=== PATIENT | female | born 1955 | race Caucasian/White ===

== ENCOUNTER → 2023-10-12 | Outpatient (CLI) | payer OTHER, SELFPAY ==
--- NOTE | 2023-10-12 16:16 | CT_ITS ---
STUDY: CT RIGHT HIP REASON FOR EXAM: Female, 67 years old. Unilateral primary osteoarthritis, right hip, surgical planning CONTRAST: None. TECHNIQUE: Transaxial imaging of the hip was performed with reformatted sagittal and coronal images. The protocol utilizes one or more of the following dose reduction techniques: automated exposure control, adjustment of mA and/or kV according to patient size,and/or use of iterative reconstruction technique. COMPARISON: FINDINGS: HIP Severe joint space narrowing with osteophyte formation, subchondral sclerosis, and subchondral cyst formation consistent with severe arthrosis. There is lateral osteoarthritic spurring of the acetabular rim with a cortical erosion of the weight bearing articular surface of the cetabulum. Normal femoral neck and intertrochanteric region. VISUALIZED OSSEOUS PELVIS Normal superior and inferior pubic rami. Normal pubic symphysis. Normal bilateral ischial tuberosity. Normal visualized iliac wing, sacroiliac joint, and sacral ala. Normal visualized soft tissue structures of the pelvis. CT/Extremity Lower without Contra IMPRESSION: Severe arthrosis. Electronically Signed: Ernst Boateng MD at 22:14 EDT ,
== END | disposition home or self-care (01) ==
PROVIDERS: PCP Family Medicine; Referring Provider Specialist; Visit Provider Specialist
DX: M16.11 Unilateral primary osteoarthritis, right hip (principal); M25.561 Pain in right knee
CPT/HCPCS: 73700

== ENCOUNTER 2023-10-31 05:11 | Day surgery (SDC) | payer OTHER, SELFPAY ==
[2023-10-12 17:05] LABS: Absolute Lymphocyte Count 1.86 X10^3/uL (0.83-4.51); Absolute Neutrophil Count 3.7 X10^3/uL (2.0-7.7); Basophil# 0.07 X10^3/uL; Basophil% 1.1 % (0-1); Eosinophil# 0.01 X10^3/uL; Eosinophils% 0.2 % (0-5); Hematocrit 40.5 % (37-47); Hemoglobin 13.3 g/dL (12.0-15.0); Lymphocyte # 1.86 X10^3/ul (0.83-4.51); Lymphocyte % 29.3 % (19-41); Mean Corp Hgb Conc 32.8 g/dL (32-36); Mean Corpuscular Hgb 30.4 pg (27.0-32.0); Mean Corpuscular Volume 92.7 fL (81-99); Mean Platelet Vol. 8.5 fl (6.2-12.0); Monocyte# 0.72 X10^3/uL; Monocyte% 11.4 % (0-10); NRBC Flagged by Analyzer 0 % (0-5); Neutrophil # 3.66 X10^3/uL (2.7-7.7); Neutrophil % 57.7 % (47-70); Platelet Count 370 K/mm3 (150-450); RBC Distribution Width CV 13.2 % (11.6-14.6); RBC Distribution Width SD 45.3 fl (35.1-43.9); Red Blood Count 4.37 M/mm3 (4.2-5.4); White Blood Count 6.3 K/mm3 (4.4-11.0)
[2023-10-12 17:27] LABS: Albumin, Serum 3.4 g/dL (3.2-5.0); Anion Gap 7 (5-15); BUN 14 mg/dL (7-18); BUN/Creat Ratio 22.5 RATIO (10-20); Calcium,Total 8.8 mg/dL (8.5-10.1); Chloride 95 mmol/L (98-107); Creatinine, Serum 0.62 mg/dL (0.55-1.02); EST Glomerular Filtration Rate 102 mL/min (>60); Est Glom Filt Rate - Afr Amer 123 mL/min (>60); Glucose 127 mg/dL (74-106); Potassium 3.1 mmol/L (3.5-5.1); Sodium Level 133 mmol/L (136-145)
[2023-10-12 17:30] LABS: Magnesium 1.8 mg/dL (1.6-2.6)
--- NOTE | 2023-10-26 09:18 | EKG12_ITS ---
Test Reason : PREOP Blood Pressure : / mmHG Vent. Rate : 089 BPM Atrial Rate : 089 BPM P-R Int : 118 ms QRS Dur : 082 ms QT Int : 374 ms P-R-T Axes : 060 069 056 degrees QTc Int : 455 ms Normal sinus rhythm Normal ECG Confirmed by MARC PFEIFFER, DEWEY ([id number]), editorial assistant MARGO MEDINA ([id number]) on 10/29/2023 7:03:18 AM Referred By: Pieter Nguyễn Confirmed By:FRANCI TRAN MD
[2023-10-26 13:08] LABS: Anion Gap 5 (5-15); BUN 13 mg/dL (7-18); BUN/Creat Ratio 12.9 RATIO (10-20); Calcium,Total 8.5 mg/dL (8.5-10.1); Chloride 101 mmol/L (98-107); Creatinine, Serum 1.01 mg/dL (0.55-1.02); EST Glomerular Filtration Rate 58 mL/min (>60); Est Glom Filt Rate - Afr Amer 70 mL/min (>60); Glucose 103 mg/dL (74-106); Potassium 3.9 mmol/L (3.5-5.1); Sodium Level 135 mmol/L (136-145)
--- NOTE | 2023-10-28 07:53 | PCM.HP.BLA ---
History and Physical History and Physical Patient Name: Angela Rai : 1955From:? ELISEO MCCOY PA-C DATE OF PRE-OPERATIVE EXAM: 10/26/2023 DATE OF SURGERY:? 10/31/2023 SCHEDULED PROCEDURE:? Robotic-assisted right total hip arthroplasty HISTORY OF PRESENT ILLNESS: Preoperative history and physical exam was performed on October 26, 2023.? This is a 67-year-old female who is had ongoing pain for over 10 years with her hip.? Surgery was initially discussed in the fall of 2022 but this had to be rescheduled due to her mother suffering a stroke.? Her mother did pass away and she is now able to proceed with surgery.? She continues to still get pain in the right hip.? Her pain as being constant, aching, sharp.? Pain is increased with going up and down stairs, driving, walking.? Her pain can reach 9/10 at worst with activities.? Pain does awaken her at night.? She has difficulty with shopping and leisure activities such as hiking.? He also has difficulty putting on her socks and shoes.? She has stumbled secondary to the hip pain.? She feels unsafe going up and down stairs.? Patient has attempted rest and elevation with minimal relief.? She has tried previous Advil and Tylenol.? Patient has obtained surgical clearance from the primary care provider Dr. Kirkpatrick.? Patient did have hyponatremia and hyperkalemia on preoperative testing however on repeat testing hyperkalemia resolved and the hyponatremia improved.? She is currently asymptomatic.? Patient denies any recent chest pain, shortness of breath, fevers chills or recent infections.? Denies past history of DVT or pulmonary embolism.? After failing conservative measures and discussing all treatment options was Dr. Pieter Nguyễn, the patient does wish to proceed with a right robotic-assisted total hip arthroplasty.? Patient has medical history pertinent for hypertension and essential tremor. REVIEW OF SYSTEMS: Review Of Systems: Constitutional: Denies change in appetite, fever and weight change. Cardiovasular: Denies chest pain, heart murmur and irregular heartbeat. Respiratory: Denies cough, pneumonia, shortness of breath, tuberculosis and wheezing. Gastrointestinal: Reports heartburn, but denies constipation, diarrhea, nausea, rectal itching, bloody stools and vomiting. Musculoskeletal: Reports pain and trouble walking, but denies leg swelling and weakness. Skin: Reports tattoo, but denies Raynaud's and history of shingles. Neurological: Denies ambulatory dysfunction, dizziness, numbness/tingling and tremor. Psychiatric: Denies anxiety, insomnia and stress. Hematologic/Lymphatic: Denies anemia, bleeding/bruising tendency and past transfusion. Reviewed, no changes. PAST MEDICAL HISTORY: Advance Care Plan: No Advance Directives Effective Date: 01/01/2023 Past Medical History: Medical Problems: High Blood Pressure, Covid-19 Vaccine Essential tremor - bilateral Accidents: Fracture - (2018) RT FOOT GREAT TOE Surgical Hx: Hysterectomy - (2005) BARRETT Left Hand Dupytrens Contracture release - (02/08/2023) Anesthesia Complications: None Assistive Devices: Glasses Reviewed and updated. SOCIAL HISTORY: Social History: Marital: .Occupation: [email or web address].Work Status: Currently Working.Hand Dominance: Right-handed. Personal Habits:? Cigarette Use: Light tobacco smoker (10 or fewer cigarettes/day).Smokeless Tobacco: Never Used Smokeless Tobacco.E-Cigarette Use: Never used.Alcohol: Occasionally.Drug Use: Denies Use.Enjoy Exercising: Never Exercises. Reviewed and updated. VITALS: Ht: 67 Wt: 125lb Wt k.700 BMI: 19.6 BP: 118/62 Pulse: 67 Resp: 15 T: 97.1 T: 36.2C Pain Level: 10 O2SatR: 98 ALLERGIES: No Known Drug Allergy MEDICATIONS: Oxycodone HCL 5 mg 1-2 tablets by mouth every 4 hours as needed., Ondansetron HCL 4 mg 1 tablet by mouth every 8 hours as needed nausea, Meloxicam 7.5 mg 1 tablet by mouth twice a day, Famotidine 20 mg 1 by mouth every day, Lisinopril 5 mg 1 by mouth every day, Hydrochlorothiazide 25 mg 1 by mouth every day, Vitamin D (Cholecalciferol) 50 mcg (1999 Ut) 1 tab, 1x/day, Potassium Chloride ER 8 Meq take 1 tablet by mouth daily with breakfast. PRE-OP EXAM: General appearance:NORMAL? Other: Eyes: Conjunctivae and lids: NORMAL? Pupils: ERR Ears, Nose, Mouth, and Throat: NORMAL? Other: Inspection of lips, teeth and gums: NORMAL?? Other: Neck: Examination of neck: no masses noted. Respiratory: Assessment of respiratory effort: NORMAL?? Other: ? Auscultation of lungs: clear to auscultation no wheezes, rhonchi or rales. Cardiovascular:? Auscultation of heart: regular rate and rhythm, no murmurs, gallops or rubs. PHYSICAL EXAMINATION: On exam patient does walk with an antalgic gait.? Patient has tenderness to palpation over the lateral aspect of the right hip at the greater trochanteric region.? Flexion 70, internal rotation 10, external rotation 15.? She does have a 20 flexion contracture.? Sensation intact to light touch. IMAGING STUDIES: Previous x-rays of the right hip reveal joint space narrowing, subchondral sclerosis, osteophyte formation consistent with severe stage IV [id number] osteoarthritis with flattening of the femoral head and large cam lesion. IMPRESSION: 1.? Severe right hip osteoarthritis 2.? Hypertension 3.? Essential tremor PLAN: Dr. Pieter Nguyễn did discuss and review with the patient all treatment options including surgical versus nonsurgical options.? Patient does wish to proceed with the above-stated procedure.? Potential risks, benefits, and complications of the procedure were discussed in detail including but not limited to , infection, nerve and blood vessel damage, persistent pain, numbness, tingling, paresthesias, blood clot, pulmonary embolism, and requirement for possible further surgery.? The patient expressed full understanding and has no further questions for the doctor.? Patient does agree to proceed with the above-stated procedure and has signed the surgery consent form. POST-OP MEDICATION PLAN: Pain Medications:? Patient was given the following medications at the preoperative visit: Famotidine, meloxicam, Zofran, oxycodone.? Patient was instructed to apple picker aspirin 81 mg, extra strength Tylenol, and senna.? She does have a walker that she will bring to the hospital.? Patient has obtained surgical clearance and her repeat lab work is appropriate to proceed with surgery as the potassium and sodium improved.? She is now acceptable to proceed with surgery. DVT Prophylaxis:? Aspirin 81 mg twice daily for 4 weeks postoperatively.? Denies past history of DVT or pulmonary embolism This dictation was created using voice recognition software. Phonetic and/or grammatical errors may exist. ___? I have re-examined the patient.? There are no clinical changes since date of exam. ___? See progress notes for changes. ___? Dictated on admission Date: ? Time: Signature:
[2023-10-31] VITALS (11 sets, daily range): BP systolic 123–141; BP diastolic 62–77; PULSE 75–99; RESP 12–20; TEMP 36.5–37; O2SAT 93–100; BMI 20.2
[2023-10-31] MEDS: Magnesium 2 GM for ERAS IV (06:11)
[2023-10-31] MEDS: Lactated Ringers 1,000 ML 999 ML IV ×2 (06:11→09:42)
[2023-10-31] MEDS: Gabapentin 600 MG Tablet PO (06:29)
[2023-10-31] MEDS: Celecoxib 200 MG Capsule 400 MG PO (06:29)
[2023-10-31] MEDS: Acetaminophen 500 MG Tablet 1000 MG PO (06:29)
[2023-10-31 07:07] LABS: Bedside Glucose 101 mg/dL (74-106)
[2023-10-31] MEDS: Cefazolin 1 GM/50 ML BAG IV ×2 (07:28→12:16)
[2023-10-31] MEDS: Cefazolin 2 GM in 0.9% Normal Saline (100mL Bag) 100 ML IV (07:28)
--- NOTE | 2023-10-31 07:30 | HIP_PTH ---
PATIENT: JESSICA CAIN LOC: [facility] [place][id number] AGE/SX: 67/F ROOM: RE10/31/[address]: Dr. Pieter Nguyễn MD : 1955 BED: DIS: 10/31/2023 SPEC #: [id number] RECD: 10/31/23 09:59 STATUS: JAYRO WALLACE #: [id number] MICHAEL: 10/31/23 07:[address]: Pieter Nguyễn DEPT: SURGICAL PATHOLOGY RECD BY: Ramu Carrasco ENTERED: 10/31/23 12:35 SP TYPE: TOTAL HIP OTHR DR: MD Shiv Guerrero PA-C Tissues: Hip, NOS Procedures: Decalcification bone/plaque Surgery Specimen Level IV HEADER OPERATION: HARESH, robotic assisted anterior right total hip arthroplasty PRE-OP DIAGNOSIS: Severe right hip osteoarthritis, hypertension essential tremor TISSUE SUBMITTED: Bone and soft tissue right hip MICROSCOPIC DIAGNOSIS Bone and tissue of right hip, total hip resection: Severe degenerative joint disease. Mild synovial hyperplasia. AM: 11/05/23 MICROSCOPIC DESCRIPTION Slides are reviewed. GROSS DESCRIPTION Received is one container labeled with the patient's name and designated bone and soft tissue right hip. The specimen consists of a hollis femoral head (with portion of femoral neck). The femoral head measures 5.0 x 5.0 x 4.5 cm. Also present in the container is a detached piece of bone consistent with portion of femoral neck measuring 4.0 x 3.2 x 1.2cm. The articular surface displays prominent osteophyte formation, eburnation and bone erosion. Also present in the specimen container are multiple irregular fragments of bone reamings and pink-yellow soft tissue measuring in aggregate 9.0 x 8.0 x 2.0 cm. Seed Specialist sections are submitted in two cassettes as follows: 1 - soft tissue, 2 - bone after decalcification. MARIBEL/ 10/31/2023 TC:5 CPT: 85687, 49124
[2023-10-31] MEDS: TXA 1000mg in NS100 100ml (IVPB at Closure) 660 MG IV (07:35)
[2023-10-31] MEDS: JPS (Morphine 10mg/ml) OPERA.SITE (08:23)
--- NOTE | 2023-10-31 08:30 | RAD_ITS ---
STUDY: X-RAY - PELVIS AND RIGHT HIP REASON FOR EXAM: Female, 67 years old. PAIN TECHNIQUE: 4 C-arm views of the pelvis and hip. 9 seconds fluoroscopy time. COMPARISON: None. FINDINGS: Images show placement of right hip arthroplasty with satisfactory position. Correlate with procedure note. Electronically Signed: Fabian Mahoney MD at 17:11 EDT , RAD/Hip 1 view with Pelvis IMPRESSION: undefined
[2023-10-31] MEDS: TXA 1000mg in NS100 100ml (IVPB at Incision) 660 MG IV (08:40)
--- NOTE | 2023-10-31 08:53 | PCM.OPRPT ---
Report of Operation Date of Procedure: 10/31/23 Pre-Operative Diagnosis: Right hip primary osteoarthritis Post-Operative Diagnosis: Right hip primary osteoarthritis Surgery/Procedure Performed:: Right minimally invasive robotic assisted total replacement Description of Surgical Findings:: Robotic assistance for acetabular placement. Stable hip with equal leg lengths. Stage IV osteoarthritis. Surgeon: Pieter Nguyễn director marketing: Presley Guardado Type of Anesthesia: Spinal General Anesthesia Anesthesiologist: Dong Roberson Special Medications: 2 g Ancef, 1 g TXA at incision, 1 g TXA closure, 10 mg Decadron, joint cocktail (5 mg Duramorph, 30 mL of 0.5% Ropivicaine, 1000 units of epinephrine, 30 mg of Toradol) Specimen's removed: Femoral head Estimated Blood Loss (mL): 200 Fluids Replaced: 1400 mL crystalloid Description of Procedure: Components used: 1. Insignia Negar femoral stem size 5 high 2. [place] trident 2 acetabular shell size 52 mm 3. [place] X3 polyethylene E 4. [place] Biolox delta 36mm, -5mm femoral head Brief history operative indications: 67 yo F who failed conservative measures for their hip osteoarthritis. X-rays were consistent with osteoarthritis including joint space narrowing, osteophyte formation and subchondral cysts. Total hip replacement was discussed with the patient with risks and benefits including but not limited to blood loss, DVTs, PEs, neurovascular damage, dislocation, general risks of anesthesia including loss of life. Patient demonstrated an understanding medical clearance is obtained the patient was consented for surgery. Procedure: On the date of procedure the patient's R hip was marked in the preoperative area. Patient was then taken back to the operating room where anesthesia assumed control of the C-spine and airway and administered anesthetic. Patient was transferred to the operating table and placed in the supine position. The hips were placed at the break of the bed and a sacral bump was placed. R The lower extremity was then prepped out in a sterile fashion using chlorhexidine while the surgeon scrubbed. The PA was vital in the positioning of the patient. Upon reentering the room the R lower extremity was draped in the standard orthopedic fashion and the incision was marked. A timeout was called and everyone agreed upon the side, the site, the procedure be performed, antibody given, and patient's identity. At this time pins were placed in the iliac crest making skin nicks and blunt dissection down to the iliac crest. After the pins were placed the pelvic array was placed. Following this our attention was directed to the surgical site and incision was made through skin, subcutaneous tissue, and fat down to fascia. The fascia was then incised and the TFL was retracted laterally. A retractor was placed on the lateral border of the femoral neck. Attention was directed to the inferior portion of the approach and all crossing vessels were identified and appropriately coagulated. A retractor was then placed on the medial portion of the femoral neck. The anterior capsule was then cleared of all soft tissue and then H shaped capsulotomy was made. The retractors were then placed inside the capsule. The femoral neck was identified and a cleanup cut was made. At this time a power corkscrew was used to remove the femoral head. Attention was then turned toward the acetabulum where the soft tissues were appropriately retracted and the acetabulum was registered using the Mercateo robotic system. After registration the robotic arm was brought in and used to reamed the acetabulum to 52 mm. A 52 mm cup was then selected and impacted into place using the robotic arm at 40 degrees anteversion and 23 degrees abduction. Acetabular liner was impacted into place and locking mechanism was verified. After completing the acetabular cup position placement pins were removed and surgery proceeded to the femur. Attention was then turned to the femur. Soft tissue releases on the medial and lateral femoral neck were appropriately done, the leg was externally rotated and lateralized. A Mdeina retractor was placed medially and proximally to the greater trochanter this allowed appropriate visualization and exposure of the femoral canal. Rongeour was then used to remove excess lateral bone. A canal finder and entry broach were used to open the proximal canal. Once we verified we were down the femoral canal we subsequently broached up to a size 5 femur. The appropriate neck was placed in the previously selected head was trialed with a -5 mm neck. Traction was pulled and the hip was reduced with internal rotation. Once it was appropriately reduced and stability was checked. There was minimal shuck, equal leg lengths and appropriate stability with hyperextension and external rotation as well as with 90? flexion and internal rotation. Fluoroscopy was then also used to verify the position of the components and leg lengths using the contralateral side for comparison. The trial components were then dislocated the proximal femur was again exposed and the components were removed from the wound. The final components were verified and opened. The wound was copiously irrigated out with normal saline. The acetabulum was checked for any residual debris. The final components were placed and impacted. Traction and internal rotation were again used to reduce the hip. After adequate reduction the hip remained stable with appropriate leg lengths. The final components were once again checked with live fluoroscopy and were found to be satisfactory. The wound was then copiously irrigated with normal saline once more, and hemostasis was obtained. Closure was then done using #1 Vicryl runner to close the fascia. A 2-0 vicryl interuppted sutures were used to close the subcutaneous skin. Nylon mattress sutures were used for final skin closure. A Silverlon dressing was placed. Patient was awakened by anesthesia and transferred to the rsan miguel. Patient was then transferred to the PACU for recovery. During the course of the procedure the physician account relationship manager (PE) played a vital role. Their intimate knowledge of my steps in the procedure aided in safe and expedient completion of the procedure. The PE played a vital rolls in positioning particularly in obtaining the appropriate positioning of the sacral bump. The PE was also vital in the retraction of soft tissues during the exposure and especially the femoral work as this is a vital part of the procedure to prevent complications and fractures. The PE was also vital and protecting soft tissues during times of bony cuts and reaming. He also played a vital role in closure with my direct supervision. The PE was also important during reduction and dislocation of the joint and trials intraoperatively. Postoperative plan: Patient will get 24 hours postop antibiotics. Patient will get in-house physical therapy and will be weight-bear as tolerated. Patient will follow up in office in 2 weeks for a wound check and x-rays. Aspirin 81 mg twice daily. Complications No intraoperative complications Admit VTE Documentation VTE Present on Admission: No VTE Mechan Device Prophylaxis: SCD's and Thigh High STEPHEN Hose VTE Pharm Prophylaxis ordered?: Yes
--- NOTE | 2023-10-31 09:25 | RAD_ITS ---
STUDY: X-RAY - PELVIS AND RIGHT HIP REASON FOR EXAM: Female, 67 years old. da -- in PACU TECHNIQUE: 2 views of the pelvis and hip. COMPARISON: None. FINDINGS: The patient is status post total hip replacement. Is good alignment. Postoperative soft tissue changes. RAD/Hip Min 2 Views (Portable) IMPRESSION: Status post right total hip replacement. There is good alignment. Postoperative soft tissue changes. Electronically Signed: Donny Calvert MD at 9:43 EDT ,
[2023-10-31] MEDS: Lactated Ringers 1,000 ML 125 ML IV (10:49)
== END 2023-10-31 14:09 | disposition home or self-care (01) ==
LOC: SDC 05:13 → AC 05:54
PROVIDERS: Anesthesiology; PCP Family Medicine; Referring Provider Specialist; Visit Provider Specialist
PROC: 8E0Y0CZ Robotic Assisted Procedure of Lower Extremity, Open Approach (ICD-10-PCS; CPT 27130; principal; 2023-10-31 07:00)
DX: M16.11 Unilateral primary osteoarthritis, right hip (principal); I10 Essential (primary) hypertension; G25.0 Essential tremor; K21.9 Gastro-esophageal reflux disease without esophagitis; Z79.899 Other long term (current) drug therapy
CPT/HCPCS: 27130; 01214; 36415; 73501; 73502; 76000; 80048; 82040; 82962; 83735; 85025; 87081; 88305; 88311; 93005; 97162; C1776; J7120; J2405

== ENCOUNTER → 2024-07-24 | Outpatient (CLI) | payer MEDICARE, SELFPAY ==
[2024-07-24 15:05] LABS: Absolute Lymphocyte Count 2.08 X10^3/uL (0.83-4.51); Absolute Neutrophil Count 2.7 X10^3/uL (2.0-7.7); Basophil# 0.08 X10^3/uL; Basophil% 1.5 % (0-1); Eosinophil# 0.08 X10^3/uL; Eosinophils% 1.5 % (0-5); Hematocrit 41.4 % (37-47); Hemoglobin 13.7 g/dL (12.0-15.0); Lymphocyte # 2.08 X10^3/ul (0.83-4.51); Lymphocyte % 38.1 % (19-41); Mean Corp Hgb Conc 33.1 g/dL (32-36); Mean Corpuscular Hgb 31.1 pg (27.0-32.0); Mean Corpuscular Volume 93.9 fL (81-99); Mean Platelet Vol. 8.8 fl (6.2-12.0); Monocyte# 0.55 X10^3/uL; Monocyte% 10.1 % (0-10); NRBC Flagged by Analyzer 0 % (0-5); Neutrophil # 2.66 X10^3/uL (2.7-7.7); Neutrophil % 48.6 % (47-70); Platelet Count 364 K/mm3 (150-450); RBC Distribution Width CV 13.2 % (11.6-14.6); RBC Distribution Width SD 45.7 fl (35.1-43.9); Red Blood Count 4.41 M/mm3 (4.2-5.4); White Blood Count 5.5 K/mm3 (4.4-11.0)
[2024-07-24 15:53] LABS: ALB/GLOB Ratio 1.4 RATIO (0.9-2.4); AST(SGOT) 86 U/L (<=31); Alanine Aminotransfer ALT/SGPT 52 U/L (<=34); Albumin, Serum 3.8 g/dL (3.4-4.8); Alkaline Phosphatase 110 U/L (35-104); Anion Gap 12 (5-15); BUN 13 mg/dL (4-19); BUN/Creat Ratio 22.5 RATIO (10-20); Calcium 9.4 mg/dL (7.6-11.0); Carbon Dioxide 25.9 mmol/L (22.0-29.0); Chloride 98 mmol/L (96-108); Creatinine, Serum 0.6 mg/dL (0.6-1.0); EST Glomerular Filtration Rate 99 (>60); Globulin 2.8 g/dL (2.2-4.2); Glucose 111 mg/dL (70-99); Hepatitis C Antibody Nonreactive (Nonreactive); Potassium 3.5 mmol/L (3.3-5.1); Protein, Total 6.6 g/dL (5.9-8.4); Sodium Level 135 mmol/L (133-145); Thyroid Stim Hormone (TSH) 0.603 uIU/mL (0.300-4.200); Total Bilirubin 0.84 mg/dL (0.00-1.30); Vitamin D,25 Hydroxy 97.7 ng/mL (30-100)
== END | disposition home or self-care (01) ==
PROVIDERS: PCP Family Medicine Geriatric Medicine; Referring Provider Family Medicine Geriatric Medicine; Visit Provider Family Medicine Geriatric Medicine
DX: I10 Essential (primary) hypertension (principal); E78.5 Hyperlipidemia, unspecified; E55.9 Vitamin D deficiency, unspecified; Z13.89 Encounter for screening for other disorder
CPT/HCPCS: 36415; 80053; 82306; 84443; 85025; 86803

== ENCOUNTER → 2024-08-08 | Outpatient (CLI) | payer MEDICARE, SELFPAY ==
[2024-08-08 13:22] LABS: Absolute Lymphocyte Count 1.65 X10^3/uL (0.83-4.51); Absolute Neutrophil Count 2.7 X10^3/uL (2.0-7.7); Basophil# 0.09 X10^3/uL; Basophil% 1.7 % (0-1); Eosinophil# 0.15 X10^3/uL; Eosinophils% 2.8 % (0-5); Lymphocyte # 1.65 X10^3/ul (0.83-4.51); Lymphocyte % 31.2 % (19-41); Mean Corp Hgb Conc 31.7 g/dL (32-36); Mean Corpuscular Volume 97.6 fL (81-99); Mean Platelet Vol. 9.3 fl (6.2-12.0); Monocyte# 0.66 X10^3/uL; Monocyte% 12.5 % (0-10); NRBC Flagged by Analyzer 0 % (0-5); Neutrophil # 2.72 X10^3/uL (2.7-7.7); Neutrophil % 51.4 % (47-70); Platelet Count 441 K/mm3 (150-450); RBC Distribution Width CV 12.9 % (11.6-14.6); RBC Distribution Width SD 45.9 fl (35.1-43.9); White Blood Count 5.3 K/mm3 (4.4-11.0)
[2024-08-08 14:26] LABS: D-Dimer Quantitative (DVT/PE) 0.34 FEU/ug/m (0.27-0.49)
[2024-08-08 16:53] LABS: ALB/GLOB Ratio 1.4 RATIO (0.9-2.4); AST(SGOT) 34 U/L (<=31); Alanine Aminotransfer ALT/SGPT 30 U/L (<=34); Alkaline Phosphatase 88 U/L (35-104); Anion Gap 13 (5-15); BUN 14 mg/dL (4-19); BUN/Creat Ratio 23.4 RATIO (10-20); Calcium,Total 9.3 mg/dL (7.6-11.0); Carbon Dioxide 25.1 mmol/L (21.0-32.0); Chloride 98 mmol/L (98-108); Creatinine, Serum 0.58 mg/dL (0.70-1.20); EST Glomerular Filtration Rate 99 (>60); Globulin 2.9 g/dL (2.2-4.2); Glucose 109 mg/dL (70-99); Potassium 3.6 mmol/L (3.3-5.1); Protein, Total 6.9 g/dL (5.9-8.4); Sodium Level 137 mmol/L (133-145); Total Bilirubin 0.31 mg/dL (0.00-1.30)
[2024-08-09 07:46] LABS: Pro- Brain NATRIURETIC PEPTIDE 126 pg/mL (<=900)
[2024-08-10 08:08] LABS: HEPATITIS B SURFACE AG Negative (Negative); Hep C Antibodies Non Reactive (Non Reactive); Hepatitis A IgM Antibody Negative (Negative); Hepatitis B Core AB IgM Negative (Negative)
== END | disposition home or self-care (01) ==
LOC: POLAB3 12:56
PROVIDERS: PCP Family Medicine Geriatric Medicine; Visit Provider Family Medicine Geriatric Medicine
DX: R60.9 Edema, unspecified (principal); K74.1 Hepatic sclerosis; R74.8 Abnormal levels of other serum enzymes
CPT/HCPCS: 36415; 80053; 80074; 83880; 85025; 85379

== ENCOUNTER → 2024-08-15 | Outpatient (CLI) | payer MEDICARE, SELFPAY ==
--- NOTE | 2024-08-15 13:25 | CT_ITS ---
PROCEDURE: LOW DOSE CT LUNG SCREENING (CTLUNGSCREEN), 08/15/2024 REASON FOR EXAM: TOBACCO ABUSE TECHNIQUE: Low dose CT (LDCT) chest was performed without contrast. Multiplanar reformats and MIP reconstructions were generated. RADIATION DOSE SUMMARY: CTDlvol: 1.59 mGy DLP: 58.58 mGycm One or more dose reduction techniques were used (e.g., Automated exposure control, adjustment of the mA and/or kV according to patient size, use of iterative reconstruction technique). COMPARISON: None FINDINGS: Note that evaluation of the vasculature, niraj, and soft tissues is limited in the absence of IV contrast. Heart/pericardium:Trace mitral annular calcification. No appreciable calcific coronary atherosclerosis. Aorta: Unremarkable. Pulmonary arteries: Unremarkable. Lymph nodes: 10 mm subcarinal node. Lungs/pleura: Mild biapical pleural/parenchymal scarring. Minimal basilar atelectasis/scarring. 2 mm RIGHT apical micronodule (series 2, image 64). Punctate high-density and/or calcified likely granulomas in the RIGHT middle lobe and RIGHT lung apex. Airways: Unremarkable. Chest wall: Unremarkable. Upper abdomen: Suboptimally evaluated due to photon starvation; grossly unremarkable.. Musculoskeletal: Demineralization. Trace thoracic dextroscoliosis may be positional. CT/Low Dose CT Lung Screening IMPRESSION: 1. Lung-RADS category: 2S (benign appearance or behavior, <1% chance of maligna ncy); continue annual screening with LDCT. 2. Other clinically significant or potentially significant non-lung cancer find ings: Borderline minimally enlarged mediastinal node, nonspecific and potentially reactive in the absence of known malignancy. Correlate with medical history and recommend attention on above follow-up. 3. Additional description as above. Recommendations per [employer]. Lung CT Screening Reporting and Data System (Lung-RADS) v. 202 Reading Location: [id number]
== END | disposition home or self-care (01) ==
LOC: CT 12:51
PROVIDERS: PCP Family Medicine Geriatric Medicine; Referring Provider Family Medicine Geriatric Medicine; Visit Provider Family Medicine Geriatric Medicine
DX: Z12.2 Encounter for screening for malignant neoplasm of respiratory organs (principal); F17.210 Nicotine dependence, cigarettes, uncomplicated
CPT/HCPCS: 71271

== ENCOUNTER → 2024-08-19 | Outpatient (CLI) | payer MEDICARE, SELFPAY ==
--- NOTE | 2024-08-19 15:20 | BI_ITS ---
EXAM: SCRN MAMM (CAD)W/ELAYNE BILAT DATE: 08/19/2024 CLINICAL HISTORY: F, Age 68 y/o , SCREENING BREAST CANCER RISK ASSESSMENT: Has not been calculated. TECHNIQUE: Bilateral screening digital breast tomosynthesis with 2D and 3D images. Computer aided detection. COMPARISON: Prior exam(s) dated dated 12/22/2022 and 03/04/2020. FINDINGS: TISSUE DENSITY: The breast tissue is composed of scattered area of fibroglandular density. Bilateral Breast Mammographic Findings: No significant masses, calcifications or other abnormalities are identified. Stable nodular densities are seen in both breasts. BI/SCRN MAMM (CAD)W/ELAYNE BILAT IMPRESSION: Right Breast: BIRADS 2 BENIGN FINDING. Left Breast: BIRADS 2 BENIGN FINDING. OVERALL FINAL ASSESSMENT: BIRADS 2 BENIGN FINDING RECOMMENDATION: Routine annual follow-up in 1 Year A letter with findings and recommendations will be mailed to the patient. Reading Location: [id number]
--- NOTE | 2024-08-19 15:23 | BD_ITS ---
EXAM: DEXA BONE DENSITY STUDY 08/19/2024 REASON FOR EXAM: F,68 y/o patient is postmenopausal. TECHNIQUE: DXA scan of the lumbar spine and total body less head, using make and model. REFERENCE LINKS: ISCD Pediatric Positions ISCD Adult Positions COMPARISON: None. FINDINGS: BMD and Z-SCORES DEXA examination of lumbar spine shows a bone mineral density measured 0.785 grams/centimeter squared. T-score measures -2.4 and Z-score measures -0.4. DEXA examination of the left femoral neck shows a bone mineral density measured 0.536 grams/centimeter squared. T-score measures -2.8 and Z-score measures -1.1. Total bone mineral density of the left hip measures 0.727 grams/centimeter squared. T-score measures -1.8 and Z-score measures -0.3. Fracture Risk Calculation: FRAX (10-year Fracture Risk) Score: The 10 year fracture risk index for major osteoporotic fracture is 24% and for hip fracture is 6.6%. The patient does meet the pharmacological treatment recommendations for prevention of osteoporosis BD/Dexa Bone Density Study IMPRESSION: Patient demonstrates osteoporosis of the left hip and osteopenia of the lumbar spine. Recommend follow-up, if clinically warranted. Reading Location: [id number]
== END | disposition home or self-care (01) ==
LOC: OPBD 15:19
PROVIDERS: PCP Family Medicine Geriatric Medicine; Referring Provider Family Medicine Geriatric Medicine; Visit Provider Family Medicine Geriatric Medicine
DX: Z12.31 Encounter for screening mammogram for malignant neoplasm of breast (principal); Z78.0 Asymptomatic menopausal state
CPT/HCPCS: 77063; 77067; 77080

== ENCOUNTER → 2024-09-05 | Outpatient (CLI) | payer MEDICARE, SELFPAY ==
--- NOTE | 2024-09-05 07:25 | US_ITS ---
PROCEDURE: ABDOMEN LIMITED 09/05/2024 REASON FOR EXAM: Elevated liver function tests. COMPARISON: No relevant prior. FINDINGS: Liver: Enlarged at 22.8 cm in length. Hyperechoic parenchyma. Homogeneous texture. Blood flow: Hepatopetal. Gallbladder: No gallstones. No wall thickening or pericholecystic fluid. Common bile duct: Measures 0.5 cm in diameter. Intrahepatic bile ducts are not dilated.. Pancreas: Unremarkable. Right kidney: Size measures 10.7 x 5.4 x 4.0 cm. Cortex measures 1.4 cm. US/Abdomen Limited IMPRESSION: 1. Hepatomegaly. 2. Steatosis. Reading Location: [place] [id number]
== END | disposition home or self-care (01) ==
LOC: US 07:23
PROVIDERS: PCP Family Medicine Geriatric Medicine; Referring Provider Family Medicine Geriatric Medicine; Visit Provider Family Medicine Geriatric Medicine
DX: R74.8 Abnormal levels of other serum enzymes (principal)
CPT/HCPCS: 76705

== ENCOUNTER → 2024-09-23 | Outpatient (CLI) | payer MEDICARE, SELFPAY ==
--- NOTE | 2024-09-23 07:57 | US_ITS ---
PROCEDURE: ELASTOGRAPHY PARENCHYMA/ORGAN, 09/23/2024 REASON FOR EXAM: FATTY LIVER COMPARISON: None TECHNIQUE: Elastography was performed for non-invasive assessment of liver tissue stiffness utilizing a 10sec S-shear wave imaging unit. FINDINGS: Number of measurements: 15 measurements across 3 regions, 5 measurements per region. US probe: CA1-7A. EQI median: 9.6 kPa EQI median velocity: 1.78 m/s IQR/Med: 19.9-27.7% (kPa) and 10.8-13.3% (m/s). If the IQR/Med is IQR/median >30% (for kPa) or >15% in m/s, the variance in the measurements is a large and the accuracy of the measurement may be in question. US/Elastography Parenchyma/Organ IMPRESSION: 1. Liver stiffness is 9.6 kPa. Although borderline, per the below 2020 SRU cri teria, this is suggestive of compensated advanced chronic liver disease but requires further testing for confirmation. 2. Additional description as above. Assessment is per the Update to the SRU Liver Elastography Consensus Statement (2020) Note that the above assessment of liver fibrosis is vendor-neutral and intended for use in fibrosis related to viral etiologies and non-alcoholic fatty-liver disease (NAFLD); in causes other than viral hepat itis and NAFLD, the cutoff values are currently not well established. In some patients with NAFLD, the cutoff values for cACLD may be lower (7-9 kPa). Note also that in the setting of elevated LFTs, nonfasting or vascular congestion, the stage of lifer fibrosis may be overestimated. Previous SRU reference values: <1.37 m/s (5.7kPa): No to mild fibrosis 1.37 m/s - 2.2 m/s: Moderate to severe fibrosis >2.2 m/s (15kPa): Significant fibrosis / cirrhosis Reading Location: [id number]
== END | disposition home or self-care (01) ==
PROVIDERS: PCP Family Medicine Geriatric Medicine; Referring Provider Family Medicine Geriatric Medicine; Visit Provider Family Medicine Geriatric Medicine
DX: K76.0 Fatty (change of) liver, not elsewhere classified (principal)
CPT/HCPCS: 76981

== ENCOUNTER → 2024-10-07 | Outpatient (CLI) | payer MEDICARE, SELFPAY ==
[2024-10-07 12:36] LABS: Absolute Lymphocyte Count 2.14 X10^3/uL (0.83-4.51); Absolute Neutrophil Count 2.4 X10^3/uL (2.0-7.7); Basophil# 0.07 X10^3/uL; Basophil% 1.3 % (0-1); Eosinophils% 3.7 % (0-5); Hematocrit 39.4 % (37-47); Hemoglobin 12.6 g/dL (12.0-15.0); Lymphocyte # 2.14 X10^3/ul (0.83-4.51); Mean Corpuscular Hgb 29.3 pg (27.0-32.0); Mean Corpuscular Volume 91.6 fL (81-99); Mean Platelet Vol. 9.6 fl (6.2-12.0); Monocyte# 0.56 X10^3/uL; Monocyte% 10.5 % (0-10); NRBC Flagged by Analyzer 0 % (0-5); Neutrophil # 2.37 X10^3/uL (2.7-7.7); Neutrophil % 44.3 % (47-70); Platelet Count 386 K/mm3 (150-450); RBC Distribution Width CV 12.1 % (11.6-14.6); RBC Distribution Width SD 40.6 fl (35.1-43.9); White Blood Count 5.4 K/mm3 (4.4-11.0)
[2024-10-07 13:26] LABS: ALB/GLOB Ratio 1.4 RATIO (0.9-2.4); AST(SGOT) 28 U/L (<=31); Alanine Aminotransfer ALT/SGPT 16 U/L (<=34); Albumin, Serum 3.9 g/dL (3.4-4.8); Alkaline Phosphatase 109 U/L (35-104); Anion Gap 10 (5-15); BUN 9 mg/dL (4-19); BUN/Creat Ratio 14.6 RATIO (10-20); Calcium,Total 9.2 mg/dL (7.6-11.0); Carbon Dioxide 27.6 mmol/L (21.0-32.0); Chloride 102 mmol/L (98-108); Creatinine, Serum 0.64 mg/dL (0.70-1.20); EST Glomerular Filtration Rate 96 (>60); Globulin 2.8 g/dL (2.2-4.2); Glucose 106 mg/dL (70-99); Potassium 4.2 mmol/L (3.3-5.1); Protein, Total 6.8 g/dL (5.9-8.4); Sodium Level 139 mmol/L (133-145); Thyroid Stim Hormone (TSH) 0.724 uIU/mL (0.300-4.200); Total Bilirubin 0.18 mg/dL (0.00-1.30); Vitamin D,25 Hydroxy 43.6 ng/mL (30-100)
== END | disposition home or self-care (01) ==
LOC: LAB 11:32
PROVIDERS: PCP Family Medicine Geriatric Medicine; Referring Provider Family Medicine Geriatric Medicine; Visit Provider Family Medicine Geriatric Medicine
DX: I10 Essential (primary) hypertension (principal); E55.9 Vitamin D deficiency, unspecified
CPT/HCPCS: 36415; 80053; 82306; 84443; 85025

== ENCOUNTER → 2024-11-17 | Outpatient (CLI) | payer MEDICARE, SELFPAY ==
[2024-11-17 12:02] LABS: Hepatitis B Surface Antibody Nonreactive
[2024-11-17 12:16] LABS: AST(SGOT) 29 U/L (<=31); Alanine Aminotransfer ALT/SGPT 22 U/L (<=34); Albumin, Serum 4.1 g/dL (3.4-4.8); Alkaline Phosphatase 124 U/L (35-104); Cholesterol 212 mg/dL (<=200); Globulin 2.8 g/dL (2.2-4.2); High Density Lipoprotein 70 mg/dL; Low Density Lipoprotein Calc. 109 mg/dL; Protein, Total 6.9 g/dL (5.9-8.4); Total Bilirubin 0.27 mg/dL (0.00-1.30); Triglycerides 165 mg/dL; Very Low Density Lipoprotein 33 mg/dL (5-40); cholesterol:hdl ratio screen 3.02
[2024-11-18 05:07] LABS: GGTP 27 IU/L (0-60); Hepatitis A AB, Total Negative (Negative); Hepatitis B Core Ab Total Negative (Negative)
== END | disposition home or self-care (01) ==
LOC: LAB 11:07
PROVIDERS: PCP Family Medicine Geriatric Medicine; Referring Provider Nurse Practitioner Acute Care; Visit Provider Nurse Practitioner Acute Care
DX: K76.0 Fatty (change of) liver, not elsewhere classified (principal); R74.8 Abnormal levels of other serum enzymes
CPT/HCPCS: 36415; 80061; 80076; 82977; 86704; 86706; 86708

== ENCOUNTER → 2025-04-08 | Outpatient (CLI) | payer MEDICARE, SELFPAY ==
[2025-04-08 11:25] LABS: Hematocrit 40.0 % (37-47); Hemoglobin 13.8 g/dL (12.0-15.0); Immature Granulocytes Count 0.020 X10^3/uL (0.0-0.0); Mean Corp Hgb Conc 34.5 g/dL (32-36); Mean Corpuscular Volume 87.0 fL (81-99); Mean Platelet Vol. 9.3 fl (6.2-12.0); NRBC Flagged by Analyzer 0 % (0-5); Platelet Count 375 K/mm3 (150-450); RBC Distribution Width CV 13.9 % (11.6-14.6); RBC Distribution Width SD 43.8 fl (35.1-43.9); Red Blood Count 4.60 M/mm3 (4.2-5.4); White Blood Count 6.3 K/mm3 (4.4-11.0)
[2025-04-08 11:54] LABS: AST(SGOT) 28 U/L (<=31); Alanine Aminotransfer ALT/SGPT 20 U/L (<=34); Albumin, Serum 4.2 g/dL (3.4-4.8); Alkaline Phosphatase 91 U/L (35-104); Anion Gap 12 (5-15); BUN 11 mg/dL (4-19); BUN/Creat Ratio 15.5 RATIO (10-20); Calcium,Total 9.2 mg/dL (7.6-11.0); Carbon Dioxide 26.9 mmol/L (21.0-32.0); Chloride 99 mmol/L (98-108); Globulin 2.9 g/dL (2.2-4.2); Glucose 132 mg/dL (70-99); Potassium 3.3 mmol/L (3.3-5.1)
== END | disposition home or self-care (01) ==
LOC: LAB 11:03
PROVIDERS: PCP Family Medicine Geriatric Medicine; Referring Provider Student in an Organized Health Care Education/Training Program; Visit Provider Student in an Organized Health Care Education/Training Program
DX: K75.81 Nonalcoholic steatohepatitis (NASH) (principal); R74.8 Abnormal levels of other serum enzymes
CPT/HCPCS: 36415; 80053; 85025